=== PATIENT | female | born 1980 | race Caucasian/White ===

== ENCOUNTER 2019-10-19 10:21 | Emergency (ER) | payer MEDICAID ==
[~2019-10-19] VITALS: Ht 165.1 cm; Wt 56.8 kg
[2019-10-19 10:27] VITALS: BP 130/81; Ht 165.1 cm; Wt 56.8 kg
[2019-10-19] MEDS ORDERED: VISTARIL25 MG PO (11:29)
== END 2019-10-19 11:39 | disposition home or self-care (01) ==
LOC: D.ER 10:21
DX: J06.9 Acute upper respiratory infection, unspecified (principal); F41.9 Anxiety disorder, unspecified; Z72.0 Tobacco use; Z71.6 Tobacco abuse counseling